=== PATIENT | female | born 1975 | race Caucasian/White ===

== ENCOUNTER → 2016-09-06 | Outpatient (CLI) | payer OTHER ==
--- NOTE | 2016-09-06 14:42 | US ---
Ultrasound lower extremity, left knee, nonvascular HISTORY: History of ganglion status post resection. Pain at the area of scar. Evaluate for recurrent ganglion. ICD-10 code M67.462 COMPARISON: MRI February 2016. FINDINGS: Ultrasound was performed of the medial left knee at the area of prior surgery. There is no evidence for fluid collection to indicate recurrent ganglion. No evidence for soft tissue mass or oth er abnormal fluid collection. IMPRESSION: No evidence for recurrent ganglion.
== END ==
LOC: FIMAGING 11:18
PROVIDERS: ATTEND Orthopaedic Surgery
DX: Z03.89 Encounter for observation for other suspected diseases and conditions ruled out (principal)

== ENCOUNTER → 2018-10-25 | Outpatient (CLI) | payer OTHER | LOC: CIMAGING 07:50 | PROVIDERS: ATTEND Obstetrics & Gynecology | DX: Z12.31 Encounter for screening mammogram for malignant neoplasm of breast (principal) ==